=== PATIENT | male | born 1985 | race Caucasian/White ===

== ENCOUNTER 2021-10-31 01:21 | Emergency (ER) | payer SELFPAY ==
[2021-10-31] MEDS ORDERED: ANTI-FUNGAL POW71 GM TP (04:04)
== END 2021-10-31 04:30 | disposition home or self-care (01) ==
LOC: ER1 01:21
DX: S90.121A Contusion of right lesser toe(s) without damage to nail, initial encounter (principal); B35.3 Tinea pedis; Z88.5 Allergy status to narcotic agent; F17.210 Nicotine dependence, cigarettes, uncomplicated; Z86.19 Personal history of other infectious and parasitic diseases; W57.XXXA Bitten or stung by nonvenomous insect and other nonvenomous arthropods, initial encounter
CPT/HCPCS: 73630; 99283

== ENCOUNTER 2021-11-10 17:43 | Emergency (ER) | payer SELFPAY ==
[~2021-11-10 17:43] MED LIST: ANTI-FUNGAL POW71 GM TP
[2021-11-10 18:13] LABS: HEMOGLOBIN 16.5 gm/dl (14.0-17.5); RED BLOOD COUNT 5.7 M/UL (4.20-5.50); WHITE BLOOD COUNT 7.6 K/UL (4.5-11.0)
[2021-11-10 18:41] LABS: BUN/CREATININE RATIO 20 (0-10)
== END 2021-11-10 22:11 | disposition home or self-care (01) ==
LOC: ER1 17:43
PROVIDERS: Family Medicine
DX: R10.11 Right upper quadrant pain (principal); F17.200 Nicotine dependence, unspecified, uncomplicated; Z88.5 Allergy status to narcotic agent
CPT/HCPCS: 80053; 81001; 85025; 96374; 99284; J1885; Q9967